=== PATIENT | male | born 1985 | race Caucasian/White ===

== ENCOUNTER 2017-09-16 17:53 | Inpatient (IN) | payer BC ==
[2017-09-16 19:32] LABS: #Basophils 0.1 thou/uL (0.0-0.2); #Eosinphils 0.2 thou/uL (0.0-0.7); #Lymphocytes 2.8 thou/uL (1.20-3.40); #Monocytes 1.2 thou/uL (0.11-0.59); #Neutrophils 11.3 thou/uL (1.40-6.50); %Basophils 0.4 % (0.0-1.0); %Eosinophils 1.3 % (0.0-10.0); %Lymphocytes 17.9 % (21.0-51.0); %Monocytes 7.8 % (0.0-10.0); Mean Platelet Volume 6.7 fL (7.4-10.4); Red Blood Cell (RBC) Count 3.66 mill/uL (4.70-6.10); White Blood Cell (WBC) Count 15.6 thou/uL (4.8-10.8)
[2017-09-16 19:54] LABS: ALT (SGPT) 13 U/L (8-55); AST (SGOT) 13 U/L (5-34); Alkaline Phosphatase 80 U/L (40-150); Anion Gap 13 mmol/L (10-20); BUN (Urea Nitrogen) 19 mg/dL (8.9-20.6); Bilirubin, Total 0.2 mg/dL (0.2-1.2); Calc. Creatinine Clearance 0 mL/min (70-130); Calcium 8.6 mg/dL (7.8-10.44); Carbon Dioxide 24 mmol/L (22-29); Chloride 103 mmol/L (98-107); Estimated GFR-MDRD 79; Globulin 2.7 g/dL (2.4-3.5); Lipase 52 U/L (8-78); Protein, Total 6.7 g/dL (6.0-8.3)
[2017-09-16] MEDS ORDERED: Piperacillin/Tazobactam 1.125 GM in Sodium Chloride 0.9% 100 ML IVPB SCH (20:15)
[2017-09-16] MEDS ORDERED: Morphine 2 mg/2ml in 0.9% NaCl PF SYRINGE ONE (20:34)
--- NOTE | 2017-09-16 21:06 | RAD ---
RIGHT HAND 3 VIEWS: Date: 09/16/17 HISTORY: Cellulitis and infection. COMPARISON: None. FINDINGS: There is contracture of the small finger proximal and distal interphalangeal joints. There appears to be a possible fracture of the base of the fifth middle phalanx. There is soft tissue swelling of the fifth digit, as well as punctate radiopaque material in the dorsal aspect of the soft tissues at the distal interphalangeal joint and between the webbing of the fourth and fifth fingers. IMPRESSION: 1. Flexion deformities of the fifth proximal and distal interphalangeal joints with severe soft tiss ue swelling. Underlying infection is of concern with flexion contractures. 2. Punctate radiopaque material within the webbing between the fourth and fifth fingers, as well as the dorsal aspect of the distal interphalangeal joint. 3. Possible fracture of the fifth middle phalanx base. POS: RELL
--- NOTE | 2017-09-16 21:25 | PDOC.EVN ---
Event Note - Event Note Event Note: [id number] h&p Dictated 1. Rt hand cellulitis and abscess 2. H/O HIV 3. Bipolar disorder, Anxiety plan: see orders
[2017-09-16] MEDS ORDERED: Ondansetron HCl/PF 4 MG/2 ML Vial IVP PRN (21:56)
[2017-09-16] MEDS ORDERED: Acetaminophen 325 MG TAB PO PRN (21:56)
[2017-09-16] MEDS: Sodium Chloride 0.9% 1,000 ML IV SCH (22:39)
[2017-09-16] MEDS: Vancomycin HCl 1.5 GM in Sodium Chloride 0.9% 250 ML 300 ML IVPB SCH (22:46)
[2017-09-16 23:06] VITALS: BMI 26.0
[2017-09-17] MEDS: HYDROcodone/Acetaminophen 5/325 mg Tablet PO PRN ×3 (00:33→21:17)
--- NOTE | 2017-09-17 00:46 | HP ---
CHIEF COMPLAINT: Right little finger infection. HISTORY OF PRESENT ILLNESS: The patient is a 32-year-old male who had injured his right hand 1 month back, since then he is having intermittent right little finger infection. The patient was admitted in [facility] 2 times and was treated with IV antibiotics and discharged home. Patient is visit ing from out of town here and he started noticing right little finger swelling and right hand swellin g since yesterday. It got worse today, started having pus drainage, that is why he came to the ER. Upon ER arrival, the patient was found to have some pus drainage and swelling, so patient currently h ad dressing done. Denies any chest pain, denies any trouble breathing. PAST MEDICAL HISTORY: History of HIV, schizoaffective disorder, psychiatric disorder and bipolar dis order. SOCIAL HISTORY: Occasional alcohol, occasional smoking. Denies any drugs. FAMILY HISTORY: Positive for heart problems. MEDICATIONS: Reviewed. ALLERGIES: LURASIDONE and RISPERIDONE. REVIEW OF SYSTEMS: Constitutional: Denies any fever, denies any chills. Eyes: Denies vision probl ems. Ears: Denies hearing loss. Neck: Denies any neck pain. Cardiovascular System: Denies any c hest pain, denies any palpation. Respiratory System: Denies any cough, denies any sputum production . Gastrointestinal: Denies any nausea. Denies any vomiting Genitourinary: No dysuria. Musculosk eletal: Positive for right hand swelling and right little finger swelling and pus drainage. Integum entary: Positive for right hand swelling and erythema. All other review of systems are reviewed and are negative. PHYSICAL EXAMINATION: CONSTITUTIONAL/VITAL SIGNS: At the time of H&P performed, blood pressure is 120/70, afebrile, pulse ox 97% on room air. GENERAL: The patient appears comfortable. HEENT: Pupils are equal, round and reactive to light. Anterior nares patent. Nose normal. Ears no rmal. Teeth intact. Tongue is moist. NECK: Supple. No JVD. CARDIOVASCULAR SYSTEM: S1 and S2 present. Regular rate and rhythm. No murmurs, no rubs, no gallops . RESPIRATORY SYSTEM: No wheezing, no rhonchi. Breath sounds bilaterally. GASTROINTESTINAL: Abdomen is soft and nontender. No guarding, no organomegaly, no masses felt. MUSCULOSKELETAL: Right hand little finger positive for dressing present. Right hand, mild swelling present. Positive for dressing. Decreased range of motion, right little finger. PSYCHIATRIC: Mood is appropriate at this time. INTEGUMENT: No rashes seen. LABORATORY DATA: Labs at the time of H&P performed; sodium 136, potassium 3.8, chloride 103, CO2 of 24, BUN of 19 and creatinine 1.10. CBC showed a white count of 15.6, hemoglobin 11.4 and platelet co unt is 262. ASSESSMENT AND PLAN: The patient is a 32-year-old male. 1. Right hand cellulitis and right little finger abscess. Plan is to start patient on IV antibiotic s. Plan to monitor the patient closely. Plan to consult ID and also hand surgeon to evaluate the pa tient. They had already notified it from the ER and plan to take him to the OR in the morning. We w ill keep patient n.p.o. 2. History of human immunodeficiency virus. Continue human immunodeficiency virus medications. 3. History of schizoaffective bipolar disorder. Continue home medications. 4. Pain. p.r.n. pain medications. The case was discussed in detail with the patient.
[2017-09-17] MEDS: Piperacillin/Tazobactam 3.375 GM in Sodium Chloride 0.9% 100 ML IVPB SCH ×4 (03:17→21:18)
[2017-09-17 04:29] LABS: #Basophils 0.1 thou/uL (0.0-0.2); #Eosinphils 0.2 thou/uL (0.0-0.7); #Lymphocytes 2.6 thou/uL (1.20-3.40); #Monocytes 0.8 thou/uL (0.11-0.59); #Neutrophils 5.1 thou/uL (1.40-6.50); %Basophils 0.6 % (0.0-1.0); %Eosinophils 2.1 % (0.0-10.0); %Lymphocytes 30.2 % (21.0-51.0); %Monocytes 8.9 % (0.0-10.0); Hematocrit 32.7 % (42.0-52.0); Red Blood Cell (RBC) Count 3.48 mill/uL (4.70-6.10); White Blood Cell (WBC) Count 8.7 thou/uL (4.8-10.8)
[2017-09-17 04:47] LABS: Anion Gap 11 mmol/L (10-20); BUN (Urea Nitrogen) 16 mg/dL (8.9-20.6); Calc. Creatinine Clearance 111 mL/min (70-130); Calcium 8.3 mg/dL (7.8-10.44); Carbon Dioxide 23 mmol/L (22-29); Chloride 109 mmol/L (98-107); Estimated GFR-MDRD 87
[2017-09-17] MEDS: Sodium Chloride 0.9% 1,000 ML IV SCH ×2 (08:03→18:31)
[2017-09-17] MEDS ORDERED: [UNRECOGNIZED DRUG - OTHER] PO SCH (09:00)
[2017-09-17] MEDS ORDERED: [UNRECOGNIZED DRUG - OTHER] PO SCH (09:00)
--- NOTE | 2017-09-17 11:13 | PDOC.PN ---
- Subjective Encounter Start Date: 09/17/17 Encounter Start Time: 07:30 Subjective: is npo to go to OR for debridement - Objective MAR Reviewed: Yes Vital Signs & Weight: Vital Signs (12 hours) Temp Pulse Resp BP Pulse Ox 09/17/17 08:59 97.9 F 68 18 96/61 99 09/17/17 08:00 97.7 F 84 16 09/17/17 05:15 97.7 F 84 16 112/63 97 09/17/17 00:00 98.4 F 86 18 98 09/16/17 23:45 98.7 F 85 16 95/58 L 98 I&O: 09/16/17 09/17/17 09/18/17 06:59 06:59 06:59 Output Total 720 Balance -720 Result Diagrams: 09/17/17 04:02 09/17/17 04:02 Phys Exam - Physical Examination HEENT: PERRLA, moist MMs Neck: no JVD, supple Respiratory: no wheezing, no rales Cardiovascular: RRR, no significant murmur Gastrointestinal: soft, non-tender, positive bowel sounds Musculoskeletal: pulses present right 5 th finger abscess with cellulitis of hand Neurological: non-focal, moves all 4 limbs Psychiatric: A&O x 3 Dx/Plan (1) Abscess of right little finger Code(s): L02.511 - CUTANEOUS ABSCESS OF RIGHT HAND Status: Acute (2) Cellulitis of hand, right Code(s): L03.113 - CELLULITIS OF RIGHT UPPER LIMB Status: Acute (3) HIV (human immunodeficiency virus infection) Status: Chronic Comment: h/o prior IVDA (4) Chronic anemia Code(s): D64.9 - ANEMIA, UNSPECIFIED Status: Chronic (5) Schizoaffective disorder Code(s): F25.9 - SCHIZOAFFECTIVE DISORDER, UNSPECIFIED Status: Chronic Qualifiers: Schizoaffective disorder type: unspecified Qualified Code(s): F25.9 - Schizoaffective disorder, unspecified - Plan is visiting from [place] -: d/w , will take him to OR today -: ID consult for help with antibiotics given his HIV status and lingering inf -: -from 1 month. ?picc line, prior h/o IVDA, will get UDS -: is on vanc and zosyn, currently does not have a male partner * . Review of Systems - Medications/Allergies Allergies/Adverse Reactions: Allergies Allergy/AdvReac Type Severity Reaction Status Date / Time lurasidone [From Latuda] Allergy Verified 09/16/17 22:31 risperidone [From Risperdal] Allergy Verified 09/16/17 22:31 Medications: Current Medications Acetaminophen (Tylenol) 650 mg PO Q4H PRN PRN Reason: Headache/Fever or Pain Hydrocodone Bitart/Acetaminophen ([place] 5/325) 1 tab PO Q4H PRN PRN Reason: Moderate Pain (4-6) Last Admin: 09/17/17 08:05 Dose: 1 tab Heparin Sodium (Porcine) (Heparin) 5,000 units SC TID [facility] Sodium Chloride (Normal Saline 0.9%) 1,000 mls @ 100 mls/hr IV .Q10H [facility] Last Admin: 09/17/17 08:03 Dose: 1,000 mls Piperacillin Sod/Tazobactam (Sod 3.375 gm/ Sodium Chloride) 100 mls @ 200 mls/ hr IVPB 0300,0900,1500,2100 [facility] Last Admin: 09/17/17 08:06 Dose: 100 mls Vancomycin HCl 1.5 gm/ Sodium (Chloride) 300 mls @ 200 mls/hr IVPB 1100,2300 [facility] Last Admin: 09/16/17 22:46 Dose: 300 mls Ondansetron HCl (Zofran) 4 mg IVP Q6H PRN PRN Reason: Nausea/Vomiting Emtricitab/Rilpiviri /Tenof Ala [Odefsey Tablet] 1 Each 0 each PO DAILY [facility] Sodium Chloride (Flush - Normal Saline) 10 ml IVF Q12HR [facility] Last Admin: 09/17/17 08:06 Dose: Not Given Sodium Chloride (Flush - Normal Saline) 10 ml IVF PRN PRN PRN Reason: Saline Flush
[2017-09-17] MEDS: Vancomycin HCl 1.5 GM in Sodium Chloride 0.9% 250 ML 300 ML IVPB SCH (12:00)
--- NOTE | 2017-09-17 14:04 | CON ---
DATE OF CONSULTATION: 09/17/2017 REASON FOR CONSULTATION: Right fifth finger infection. HISTORY OF PRESENT ILLNESS: A 32-year-old who has a history of HIV seropositivity, currently on effe ctive antiretroviral therapy with Odefsey and sustained injury to his right and left hands about a mo nth ago when he punched a window and had glass cuts. Overall, the injuries to the one in the fifth d igit right hand is the one that became chronic and apparently he has a hand surgeon in [facility], and had some cultures done there, does not recall the results. Reportedly, he was treated twice w ith intravenous antimicrobial therapy and discharged home. He came to visit family here in town and developed worsening inflammatory changes and was admitted. There were some drainage noted. No heada ches, visual symptoms, sore throat, odynophagia or dysphagia. No cough or sputum production or chest pain. No abdominal pain, diarrhea or genitourinary symptoms. No neurological symptoms. PAST MEDICAL HISTORY: HIV seropositive status. Last CD4 cell count was around the thousand. Viral load was undetectable. Schizoaffective disorder, bipolar disorder. SOCIAL HISTORY: Smokes occasionally. Drinks occasionally. No drug use. Lives in [place], [place]. He is planning to go back to [place], in the next few days. FAMILY HISTORY: Noncontributory. MEDICATIONS: Odefsey and in addition to that, he is receiving Zosyn and vancomycin. ALLERGIES: Includes LURASIDONE and RISPERIDONE. PHYSICAL EXAMINATION: VITAL SIGNS: Essentially normal. SKIN: Shows the flexion deformity of the right fifth digit at the proximal and distal interphalangea l joints. No other skin lesions. No lymphadenopathy. HEENT: Ocular movements are conjugate. Sclerae white. Pupils are equal. Oral cavity moist, negro us teeth in place in good shape. NECK: Supple. No jugular venous distention. LUNGS: With symmetric clear breath sounds. HEART: S1 and S2, regular rate. No S3 or S4. ABDOMEN: Soft, not distended or tender. No ascites. No bladder distention. GENITOURINARY: No genital abnormalities. EXTREMITIES: No joint inflammatory activity outside the involved area. NEUROLOGIC: Nonfocal. LABORATORY DATA: White cell count 15.6 and 8.7, hemoglobin 10.8, platelets 232 with unremarkable dif ferential. Chemistry was normal. We have no microbiology samples. RADIOLOGY STUDY: There is a hand x-ray with flexion deformities fifth proximal and distal IP joints, severe soft tissue swelling, punctate radiopaque material within the webbing between the fourth and fifth fingers and dorsal aspect of the distal interphalangeal joint, possible fracture fifth middle p halanx base. ASSESSMENT: 1. Human immunodeficiency virus seropositive status. Reportedly, good control of viremia with excel lent CD4 cell count on antiretroviral therapy. 2. Injury to right and left hands with no chronic infection of the fifth digit. DISCUSSION: The silveira and piece of information is what kind of a surgical intervention he had in terms of debridement and samples for cultures and the results of those cultures. The cultures would have to be submitted for routine aerobic and anaerobic as well as fungal and mycobacterial cultures. He w ould require hand surgeon attention. He already has one in [place] and is willing to go back to [facility] for care, but he is planning to go to [place] first, so it becomes a bit of a problem in terms of the disposition for this case. From a standpoint of the potential for losing his digit, I would enco urage continuation of aggressive management, consultation with hand surgeon and proceeding according to patient's wishes. An MRI of the hand will be ordered as well. We will ask the department secretary to [facility] records from [place], [place], regarding the cultures.
[2017-09-17] MEDS: Heparin 5,000 UNITS/ML VIAL SC SCH ×2 (14:23→21:12)
[2017-09-17] MEDS ORDERED: Neomycin-Polymyxin 1 ML AMP ONE ×2 (15:18→15:58)
[2017-09-17] MEDS ORDERED: Ondansetron HCl/PF 4 MG/2 ML Vial ONE (15:50)
[2017-09-17] MEDS ORDERED: PHENYLEPHRINE-NS 100 MCG/ML 10 ML SYRINGE ONE (15:50)
[2017-09-17] MEDS ORDERED: Propofol 200 MG/20 ML VIAL ONE (15:50)
[2017-09-17] MEDS ORDERED: Promethazine HCl 25 MG/ML VIAL IM PRN (16:37)
[2017-09-17] MEDS ORDERED: Ondansetron HCl/PF 4 MG/2 ML Vial IVP PRN (16:37)
[2017-09-17] MEDS ORDERED: Promethazine HCl 25 MG/ML VIAL SLOW IVP PRN (16:37)
[2017-09-17] MEDS ORDERED: Morphine Sulfate 2 MG/ML SYRINGE SLOW IVP PRN (16:37)
--- NOTE | 2017-09-17 17:47 | OP ---
DATE OF OPERATION: 09/17/2017 PREOPERATIVE DIAGNOSES: 1. Septic arthritis of the proximal interphalangeal joint of the right little finger. 2. Septic flexor tenosynovitis of the right little finger. POSTOPERATIVE DIAGNOSES: 1. Septic arthritis of the proximal interphalangeal joint of the right little finger. 2. Septic flexor tenosynovitis of the right little finger. PROCEDURE: 1. Irrigation and debridement of the proximal interphalangeal joint of the right little finger. 2. Irrigation and debridement of the flexor tendon sheath of the right little finger. SURGEON: Meliton Nelson M.D. ANESTHESIA: General. TECHNIQUE: The patient was taken to the operating room and placed in supine position. Satisfactory general anesthesia was performed. The right hand and upper extremity was sterilely prepped and drape d in the usual fashion. No exsanguination was performed and the tourniquet at the right forearm was raised to 200 mmHg. The right little finger was noted to be very swollen and red. There was purulen t drainage from the dorsum of the little finger at the PIP joint. This area was opened and the PIP j oint was entered. There was some purulent drainage. This was copiously irrigated using the high spe ed ingredient mixer with antibiotic solution. There was significant swelling at the flexor tendon sheath at the PIP joint. This was opened distally just proximal to the flexor tendon sheath at the DIP joint and at the flexor tendon sheath over the A1 roel area. There was some purulent drainage in the ten don sheath and this was irrigated out with normal saline with Angiocath. It was irrigated until ther e was clear fluid in the flexor tendon sheath. The wounds were all left open. A sterile dressing wa s applied. Tourniquet was released. The patient was awakened, extubated, and transferred to recover y room in stable condition. ESTIMATED BLOOD LOSS: None. COMPLICATIONS: None. TOURNIQUET TIME: 14 minutes. DISPOSITION: The patient states that he has family that is leaving to go back to [place] where he is from and they are leaving tomorrow and regardless of any plan that we have he is also leaving tomorro w and therefore, I wrote a prescription for him to be able to take with him for doxycycline 100 mg tw ice a day #30 and Bactrim-DS 1 p.o. b.i.d. #30. Asked the patient to find an orthopedist there in [facility] and continue with care for the right little finger.
[2017-09-18] MEDS: Vancomycin HCl 1.5 GM in Sodium Chloride 0.9% 250 ML 300 ML IVPB SCH ×2
[2017-09-18] MEDS: Sodium Chloride 0.9% 1,000 ML IV SCH (04:00)
[2017-09-18] MEDS: Piperacillin/Tazobactam 3.375 GM in Sodium Chloride 0.9% 100 ML IVPB SCH ×2 (04:00→08:04)
[2017-09-18] MEDS: Heparin 5,000 UNITS/ML VIAL SC SCH (08:04)
[2017-09-18 08:49] VITALS: BP 108/55; TEMP 99
--- NOTE | 2017-09-18 09:04 | PDOC.PN ---
- Subjective Encounter Start Date: 09/18/17 Encounter Start Time: 06:45 Subjective: feels better, wants to go home - Objective MAR Reviewed: Yes Vital Signs & Weight: Vital Signs (12 hours) Temp Pulse Resp BP Pulse Ox 09/18/17 08:00 99.0 F 75 18 108/55 L 98 I&O: 09/17/17 09/18/17 09/19/17 06:59 06:59 06:59 Output Total 720 Balance -720 Result Diagrams: 09/17/17 04:02 09/17/17 04:02 Phys Exam - Physical Examination HEENT: PERRLA, moist MMs Neck: no JVD, supple Respiratory: no wheezing, no rales Cardiovascular: RRR, no significant murmur Gastrointestinal: soft, non-tender, positive bowel sounds Musculoskeletal: pulses present Neurological: non-focal, moves all 4 limbs Psychiatric: A&O x 3 Dx/Plan (1) Abscess of right little finger Code(s): L02.511 - CUTANEOUS ABSCESS OF RIGHT HAND Status: Acute Comment: s/ p debridement 09/17/2017 (2) Cellulitis of hand, right Code(s): L03.113 - CELLULITIS OF RIGHT UPPER LIMB Status: Acute (3) HIV (human immunodeficiency virus infection) Status: Chronic Comment: h/o prior IVDA (4) Chronic anemia Code(s): D64.9 - ANEMIA, UNSPECIFIED Status: Chronic (5) Schizoaffective disorder Code(s): F25.9 - SCHIZOAFFECTIVE DISORDER, UNSPECIFIED Status: Chronic Qualifiers: Schizoaffective disorder type: unspecified Qualified Code(s): F25.9 - Schizoaffective disorder, unspecified - Plan is on vanc and zosyn here, d/w : should wait for cultures -: cultures are pending, pt wants to go home come what may -: Pt clearly understands the risk of going against advice including loss of -: finger/spread of infection etc. -: He has a script for doxy and bactrim given by * . Review of Systems - Medications/Allergies Allergies/Adverse Reactions: Allergies Allergy/AdvReac Type Severity Reaction Status Date / Time lurasidone [From Latuda] Allergy Verified 09/16/17 22:31 risperidone [From Risperdal] Allergy Verified 09/16/17 22:31 Medications: Current Medications Acetaminophen (Tylenol) 650 mg PO Q4H PRN PRN Reason: Headache/Fever or Pain Hydrocodone Bitart/Acetaminophen ([place] 5/325) 1 tab PO Q4H PRN PRN Reason: Moderate Pain (4-6) Last Admin: 09/17/17 21:17 Dose: 1 tab Heparin Sodium (Porcine) (Heparin) 5,000 units SC TID [facility] Last Admin: 09/18/17 08:04 Dose: Not Given Piperacillin Sod/Tazobactam (Sod 3.375 gm/ Sodium Chloride) 100 mls @ 200 mls/ hr IVPB 0300,0900,1500,2100 [facility] Last Admin: 09/18/17 08:04 Dose: 100 mls Vancomycin HCl 1.5 gm/ Sodium (Chloride) 300 mls @ 200 mls/hr IVPB 1100,2300 [facility] Last Admin: 09/18/17 00:00 Dose: 300 mls Ondansetron HCl (Zofran) 4 mg IVP Q6H PRN PRN Reason: Nausea/Vomiting Emtricitab/Rilpiviri /Tenof Ala [Odefsey Tablet] 1 Each 0 each PO DAILY [facility] Sodium Chloride (Flush - Normal Saline) 10 ml IVF Q12HR [facility] Last Admin: 09/18/17 08:04 Dose: Not Given Sodium Chloride (Flush - Normal Saline) 10 ml IVF PRN PRN PRN Reason: Saline Flush
--- NOTE | 2017-09-18 14:27 | DIS ---
DATE OF ADMISSION: 09/16/2017 DATE OF DISCHARGE: 09/18/2017 The patient is being discharged against medical advice. PRIMARY DISCHARGE DIAGNOSES: Right little finger abscess with cellulitis, status post debridement done by Dr. Nelson on 09/17/2017. SECONDARY DISCHARGE DIAGNOSES: Chronic human immunodeficiency virus status, chronic anemia, history of schizoaffective disorder. PROCEDURES DONE DURING HOSPITALIZATION: The patient has had irrigation and debridement of the proximal interphalangeal joint of the right little finger and flexor tendon sheath of the right little finger for septic arthritis of the proximal interphalangeal joint of right little finger with septic tenosynovitis of right little finger by Dr. Nelson on 09/17/2017. He had a white count of 15, with discharge number of 8.7, H&H 10 and 32, platelet count 232, BUN 16, creatinine 1.0. Liver enzymes were within normal limits. Albumin was 4.0. INPATIENT CONSULTS: Dr. Hi for Infectious Disease, Dr. Nelson for Orthopedic Surgery. DISCHARGE PLAN: The patient has been discharged on Bactrim and doxycycline along with his Odefsey for HIV 1 tab a day, Haldol 5 mg twice daily, [place] p.r.n. for pain. ALLERGIES: LURASODONE, RISPERIDONE. BRIEF COURSE DURING HOSPITALIZATION: The patient initially got admitted on the for worsening infection on his right little finger. This has been ongoing for almost a month after he sustained injury at home. He has had 2 debridements in [facility] in [facility] prior to arrival here. The patient was visiting with his family here when this happened. He has had consultation with Dr. Nelson and Dr. Hi. The patient has had incision and drainage for septic arthritis as described above by Dr. Nelson. Wound cultures are pending at present. The patient is wanting to go home come what may as his family is going to [place] today and the tickets are booked for the same. He is also planning to go back to [place] on Sunday. He would not want to wait for cultures and is ready to sign out against advice. The patient is clearly aware of doing the same. He knows that he might lose his finger or might end up septic with his immunocompromised state. Dr. Nelson has given him a prescription for Bactrim and doxycycline as patient was adamant on going home. He is being discharged against advice. Please see a face to face documentation for the day of discharge on [facility]. GABE
== END 2017-09-18 11:44 | disposition home or self-care (01) | DRG 969 ==
LOC: ERS 17:53 → OBSVTOIN 22:09 → 2SW 22:09 → T4-A 09-17 00:03
PROVIDERS: ADMIT Internal Medicine; ATTEND Internal Medicine
PROC: 0LD70ZZ Extraction of Right Hand Tendon, Open Approach (ICD-10-PCS; principal; 2017-09-17)
PROC: 0PDT0ZZ Extraction of Right Finger Phalanx, Open Approach (ICD-10-PCS; 2017-09-17)
DX: M00.9 Pyogenic arthritis, unspecified (principal); B20 Human immunodeficiency virus [HIV] disease; L02.511 Cutaneous abscess of right hand; M65.9 Synovitis and tenosynovitis, unspecified; L03.011 Cellulitis of right finger; F25.0 Schizoaffective disorder, bipolar type; F17.200 Nicotine dependence, unspecified, uncomplicated; D64.9 Anemia, unspecified; Z88.8 Allergy status to other drugs, medicaments and biological substances
CPT/HCPCS: 36415; 80048; 80053; 83690; 85025; 96361; 96365; 96375; A4216; J1644; J2270; J2405; J2543; J2704; J3370; J7050